=== PATIENT | male | born 1940 | race Caucasian/White ===

== ENCOUNTER 2023-02-10 18:22 | Emergency (ER) | payer OTHER ==
[~2023-02-10] VITALS: Ht 167.6 cm; Wt 90.0 kg
[2023-02-10 18:25] VITALS: O2SAT 98
[2023-02-10] MEDS ORDERED: NITROGLYCERIN OINT 1GM/INCH UDPKT TD ONE (19:00)
[2023-02-10] MEDS ORDERED: FUROSEMIDE 40MG/4ML VIAL IV ONE (19:00)
[2023-02-10] MEDS ORDERED: ASPIRIN 81MG TABLET PO ONE (19:00)
[2023-02-10] MEDS ORDERED: FUROSEMIDE 40MG/4ML VIAL IV NR (21:45)
[2023-02-10] MEDS ORDERED: ASPIRIN 81MG TABLET PO NR (21:45)
[2023-02-10] MEDS ORDERED: NITROGLYCERIN OINT 1GM/INCH UDPKT TD NR (21:45)
[2023-02-10 22:25] LABS: BASOPHILS % 0.4 % (0.0-2.0); EOSINOPHILS % 0.1 % (0.0-5.0); HEMATOCRIT. 44.1 % (42.0-52.0); HEMOGLOBIN. 14.5 g/dL (14.0-18.0); LYMPHOCYTES % 11.1 % (20.0-50.0); MEAN CORPUSCULAR HEMOGLOBIN 29.1 pg (28.0-32.0); MEAN CORPUSCULAR HGB CONC 32.9 g/dL (31.0-37.0); MEAN CORPUSCULAR VOLUME 88.4 fL (80.0-94.0); NEUTROPHILS % 82.4 % (40.0-76.0); RED BLOOD CELL COUNT 4.98 mill/uL (4.7-6.1); RED CELL DISTRIBUTION WIDTH 14.9 % (11.6-14.6)
[2023-02-10 22:27] LABS: DIFFERENTIAL COMMENT 1
[2023-02-10 22:35] LABS: CHLORIDE 102 mEq/L (98-107); INDEX HEMOLYSI 3 (1-3); INDEX ICTERIC 1 (1-4); INDEX LIPEMIC 1 (1-3); POTASSIUM 3.8 mEq/L (3.5-5.1); SODIUM 135 mEq/L (136-145)
[2023-02-10 22:43] LABS: ALANINE AMINOTRANSFERASE 33 IU/L (13-61); ALBUMIN 3.6 g/dL (3.4-5.0); ASPARTATE AMINOTRANSFERASE 28 IU/L (15-37); BILIRUBIN TOTAL 0.5 mg/dL (0.1-1.0); CALCIUM 8.4 mg/dL (8.5-10.1); CARBON DIOXIDE 25 mEq/L (21-32); CREATININE 0.9 mg/dL (0.6-1.3); GLUCOSE 278 mg/dL (70-105); NT PRO B-TYPE NATRIURETIC PEP 283 pg/mL (5-125); PROTEIN TOTAL 7.3 g/dL (6.0-8.3); TROPONIN I HIGH SENSITIVITY 16 ng/L (<78); UREA NITROGEN BLOOD 19 mg/dL (7-21)
[2023-02-10 22:50] LABS: MEAN PLATELET VOLUME 8.8 fl (7.4-10.4); PLATELET 595 x1000/uL (130-400)
[2023-02-10 23:33] LABS: TROPONIN I HIGH SENSITIVITY 19 ng/L (<78)
[2023-02-11 02:58] VITALS: BP 115/61; PULSE 101; RESP 22; TEMP 99.2
== END 2023-02-11 03:57 | disposition short-term general hospital (02) ==
LOC: ER 18:22
DX: R06.02 Shortness of breath (principal); E11.9 Type 2 diabetes mellitus without complications; I10 Essential (primary) hypertension; Z86.73 Personal history of transient ischemic attack (TIA), and cerebral infarction without residual deficits; Z20.822 Contact with and (suspected) exposure to COVID-19
CPT/HCPCS: 99285; 96374; 71045; 80053; 83880; 85025; 84484; 36415; 93005; 87426; J1940; C9803